=== PATIENT | female | born 1970 | race Two or more races ===

== ENCOUNTER 2024-11-12 14:39 | Emergency (ER) | payer MEDICAID, SELFPAY ==
[2024-11-12 15:31] VITALS: BP 135/91; PULSE 68; RESP 18; TEMP 36.9; O2SAT 95; BMI 36.6
--- NOTE | 2024-11-12 15:40 | XR_ITS ---
Examination: CT brain head without contrast. 2-D sagittal coronal reconstructions Date and time of exam:November 12, 2024 1600 hrs. Indications: Headaches dizziness today CTDI: vol (mGy):46.4 DLP: (mGycm):851 Technique: Multiple CT axial sections of the brain have been obtained, 5 mm slice thickness. Contrast has not been administered. 2-D sagittal, coronal reconstructions have been obtained Low dose protocols were performed. One or more of the following dose reduction techniques were used; automated exposure control, adjustment of the mA and/or KV according to patient size, use of iterative reconstruction technique. Findings: No significant ventricular enlargement. Intra-axial or extra-axial hemorrhage density is not seen. No mass effect or midline shift Basal cisterns are not remarkable. Fourth ventricle is midline. Cranial vault intact. Impression: Negative for acute hemorrhage, mass effect or midline shift Advise clinical correlation follow-up accordingly
--- NOTE | 2024-11-12 15:44 | PD.EDRME ---
Rapid Medical Screening Exam RME Arrival date/time: 11/12/24 14:39 54-year-old female reports with complaints of dizziness headache and nosebleeds that have been occurring for several years Chief Complaint: Flu Like Symptoms Time Seen by Provider: 11/12/24 15:13 Vital signs: Vital Signs Temperature 98.5 F 11/12/24 15:31 Pulse Rate 68 11/12/24 15:31 Respiratory Rate 18 11/12/24 15:31 Blood Pressure 135/91 H 11/12/24 15:31 Pulse Oximetry (%) 95 11/12/24 15:31 Oxygen Delivery Method Room Air 11/12/24 15:31
--- NOTE | 2024-11-12 16:21 | PD.EDEPIST ---
ED Epistaxis RME/HPI General Chief complaint: Flu Like Symptoms Stated complaint: RUNNY NOSE, NEAR SYNCOPE HAD IT FOR LONG TIME Time Seen by Provider: 11/12/24 15:13 Arrival date/time: 11/12/24 14:39 54-year-old female who has a history of epistasis reports with complaints of nosebleed that occurred this afternoon that made her severely dizzy. She denies any fever headaches head injury weakness fatigue blurred vision ringing in ears cough or congestion. Patient states that she had a little bit of nausea but no vomiting. Patient states that she typically has some dizziness with nosebleeds but today was more severe than ever. Patient has not been evaluated by ENT for the nosebleeds Limitations: no limitations RME / HPI RME / HPI Narrative: 11/12/24 14:39 54-year-old female reports with complaints of dizziness headache and nosebleeds that have been occurring for several years Related Data Allergies Allergy/AdvReac Type Severity Reaction Status Date / Time sulfamethoxazole Allergy Severe ITCHES Verified 03/09/10 15:06 HANDS AND FEET trimethoprim Allergy Severe ITCHES Verified 03/09/10 15:06 HANDS AND FEET Review of Systems Constitutional Constitutional: Denies chills, Denies fever(s) and Denies headache(s) Eyes Eyes: Denies loss of vision ENT Ears, Nose, Mouth, and Throat: Reports ear discharge (h/o eustachian tube dysfunction), Reports epistaxis, Denies facial pain, Denies headache(s), Denies neck pain, Denies throat swelling, Denies tinnitus, Denies tongue swelling and Reports vertigo Cardiovascular Cardiovascular: Denies chest pain, Denies dyspnea, Denies irregular heart rhythm and Denies syncope Respiratory Respiratory: Denies cough and Denies dyspnea Gastrointestinal Gastrointestinal: Reports nausea and Denies vomiting Musculoskeletal Musculoskeletal: Denies myalgias and Denies neck pain Integumentary/Breasts Skin/Breast: Denies non-healing lesions and Denies sores Neurologic Neurologic: Denies confusion, Denies convulsions, Denies headache(s), Denies lack of coordination, Denies loss of vision, Denies memory loss, Denies syncope and Reports vertigo Psychiatric Psychiatric: Denies confusion and Denies memory loss Hematologic/Lymphatic Hematologic/Lymphatic: Denies easy bleeding and Denies easy bruising Allergic/Immunologic Allergic/Immunologic: Denies throat swelling and Denies tongue swelling Past Medical History Social History SMOKING STATUS: Never smoker ED Exam General Limitations: Present no limitations General appearance: Present alert and in no apparent distress Head Head exam: Present atraumatic Eye Eye exam: Present normal appearance, PERRL and EOMI ENT ENT exam: Present normal exam, normal oropharynx, mucous membranes moist and normal external ear exam Neck Neck exam: Present normal inspection, full ROM and trachea midline Chest Chest inspection: Present normal inspection and symmetric chest wall rise Respiratory Respiratory exam: Present normal lung sounds bilaterally Cardiovascular Cardiovascular exam: Present regular rate, normal rhythm and normal heart sounds Abdominal Exam Abdominal exam: Present soft and normal bowel sounds Extremities Exam Extremities exam: Present normal inspection and full ROM Back Exam Back exam: Present normal inspection and full ROM Neurological Exam Neurological exam: Present alert, oriented X3 and CN II-XII intact Psychiatric Psychiatric exam: Present normal affect and normal mood Skin Skin exam: Present warm, dry, intact and normal color Course Course Course Narrative: 54-year-old female with a history of epistasis reports with complaints of dizziness and near syncope today with a nosebleed. Patient has a typical neurovascular exam head CT is negative for bleeds or shifts. Differential diagnosis includes epistasis sinusitis allergic rhinitis. Patient is stable nontoxic-appearing with stable vital signs be discharged home with advice to follow-up with primary care provider for referral for ENT specialist Quality Measures none Orders Category Date Time Status CT head/brain wo con Stat Exams 11/12/24 15:40 Completed Vital Signs Vital signs: Vital Signs Temperature 98.5 F 11/12/24 15:31 Pulse Rate 68 11/12/24 15:31 Respiratory Rate 18 11/12/24 15:31 Blood Pressure 135/91 H 11/12/24 15:31 Pulse Oximetry (%) 95 11/12/24 15:31 Oxygen Delivery Method Room Air 11/12/24 15:31 Epistaxis Patient data External records reviewed:: None Clinical information provided by:: patient Social determinants that could affect healthcare access:: none Patient has the following chronic illnesses:: none How is presenting disease/condition affected by chronic disease/condition?: no chronic disease Evaluation data The following diagnostics were reviewed and interpreted by me:: radiology exam(s) Lab and/or radiology exams considered but not ordered:: none Interpretation Summary: Negative for bleed or shifts Medications / Prescriptions Medications or Prescriptions considered but not ordered:: None Medication administrations:: None Consultations Consultation(s) initiated? (list below): No Diagnosis Most likely diagnosis given after review of the tests above:: Epistasis Admission Indicated Admission indicated?: not indicated Admission Request Was there a request for admission?: No Disposition Plan Disposition Plan: Discharge Discharge Attestation Discharge Attestation: The patient and all family members were given an opportunity to ask questions and understood the discharge instructions. Discharge instructions specifically effects, indications for sooner follow up or return to the emergency department, and the expected course of current diagnosis. Patient condition: Stable Discharge Plan Plan Patient Disposition: HOME (Self Care) Prescriptions/Referrals Referrals: Marco Antonio Clifton [Primary Care Provider] - In 1 week Problem List Clinical Impression: Epistaxis Patient/Caregiver Discharge Instructions Discharge Activity: activity as tolerated Education Materials: ED Epistaxis (Adult) Additional Instructions: Your CAT scan was normal you should follow-up with your primary care provider for referral to search engine marketing strategist to identify the cause of your nosebleeds if symptoms should worsen return to the emergency department Print Language: Filipino Stand Alone Forms: [employer] Info., Patient Portal Info Letter
== END 2024-11-12 17:27 | disposition home or self-care (01) ==
PROVIDERS: Emergency Provider Emergency Medicine; PCP Physician Assistant
DX: R04.0 Epistaxis (principal); R42 Dizziness and giddiness
CPT/HCPCS: 70450; 99284

== ENCOUNTER → 2025-07-16 | Outpatient (CLI) | payer MEDICAID, SELFPAY ==
--- NOTE | 2025-07-16 08:00 | XR_ITS ---
Examination: Screening digital mammography, bilateral Computer aided detection 3-D breast Tomosynthesis, bilateral Date and time of exam: July 16, 2025, 0759 hours, compared to mammograms dating to March 01, 2014 Indication: Screening Technique: Nonmagnified MLO, CC views of the breasts to been obtained, reconstructed from 3-D Tomosynthesis images. R2 computer aided detection program utilized for evaluation of suspicious masses and/or abnormal calcifications. 3-D Tomosynthesis images obtained. Findings: Scattered areas of fibroglandular density Benign calcifications. Implants appear intact No interval suspicious masses Impression: BI-RADS category II: Benign Findings. Recommend 1 year follow-up mammogram.
== END | disposition home or self-care (01) ==
PROVIDERS: Referring Provider Internal Medicine; Visit Provider Internal Medicine
DX: Z12.31 Encounter for screening mammogram for malignant neoplasm of breast (principal); R92.323 Mammographic fibroglandular density, bilateral breasts; R92.1 Mammographic calcification found on diagnostic imaging of breast
CPT/HCPCS: 77063; 77067